=== PATIENT | female | born 1970 | race Caucasian/White ===

== ENCOUNTER → 2017-04-11 | Day surgery (SDC) | payer BC ==
[2017-04-08 10:45] VITALS: Ht 165.1 cm; Wt 68.2 kg
[~2017-04-11] VITALS: Ht 165.1 cm; Wt 68.2 kg
[~2017-04-11] MED LIST: ACET500T57 PO; AMIT100T2 PO; BTLAI INJ; CALC250T8 PO; CHOL100010 PO; CLON1TAB3 PO; CYAN1SUB12 SL; FENTANYL CITRATE INJ 50 MCG/1 ML 2 ML VIAL ONE; FERR325T51 PO; HYDR-4079 PO; LAMO150T32 PO; LEVO50TA6 PO; LIDOCAINE HCL 2% 2 ML VIAL (20MG/ML) ONE; LITH300T2 PO; LITH600C PO; LRS20 PO; MELA1TAB48 PO; MIDAZOLAM HCL 1 MG/ML 2ML VIAL ONE; OLAN-111 PO; ONDA4TAB46 PO; PHEN-876 PO; POLY335025 PO; PROC1TAB5 PO; PROPOFOL IV EMULSION 10 MG/ML 20 ML VIAL IV ONE; RIZA10TA21 PO; SODIUM CHLORIDE 0.9% 500ML 500 ML IV ONE; TEMA30CA4 PO; TOPI200T20 PO
--- NOTE | 2017-04-11 08:57 | Endo History and Physical ---
History & Physical Date of Service: Apr 11, 2017. Chief Complaint: Esophageal dysphagia Referring Physician: Dr. Walker History of Present Illness 46 yo CF who presents for EGD secondary to dysphagia. Past Medical History Eating Disorders, Other Psy. Disorders, Anxiety, Reflux, Hypertension, Thyroid Disease, Other, Depression Past Surgical History Hx Cardiac Surgery: No Hx Internal Defibrillator: No Hx Pacemaker: No Hx Abdominal Surgery: Yes (GASTRIC BYPASS, VENTRAL HERNIA REPAIR, JACKIE, APPY, BOWEL OBSTRUCTION) Hx of Implantable Prosthesis: No Hx Post-Op Nausea and Vomiting: No Hx Cancer Surgery: Yes (MELANOMA REMOVAL) Hx Thoracic Surgery: No Hx Orthopedic: Yes (L/R SHOULDER SURGERY) Hx Urinary Tract Surgery: No Family History None Social History Smoking Status: Never Smoker Hx Substance Use: No Hx Alcohol Use: No Allergies Coded Allergies: Fentanyl (Verified Allergy, Unknown, RASH, ITCHY, 04/08/17) REACTS ONLY TO PATCH AND TOLERATE IV DOSES Morphine (Verified Allergy, Unknown, HIVES, ITCHING, 04/08/17) Oxycodone (Verified Allergy, Unknown, HIGH FEVERS, 04/08/17) Sumatriptan (Verified Allergy, Unknown, HIVES, 04/08/17) Duloxetine (Verified Adverse Reaction, Intermediate, NIGHTMARES, HALLUCINATIONS, 04/08/17) Gabapentin (Verified Adverse Reaction, Mild, NIGHTMARE, 04/08/17) Tramadol (Verified Adverse Reaction, Mild, VOMITTING, 04/08/17) NSAIDs (Verified Adverse Reaction, Unknown, CONTRAINDICATED HX: GASTRIC BYPASS, 04/08/17) Current Medications Reported Home Medications Medications Dose Route/Sig Max Daily Dose Days Date Category Dose Instructions Compazine (Prochlorperazine Maleate) 10 Mg Tab 10 Mg PO DIRECTED PRN 04/08/17 Reported Zofran (Ondansetron HCl) 4 Mg Tab 4 Mg PO Q8H PRN 04/08/17 Reported [place] Carbonate Tab ([place] Carbonate) 300 Mg Tab 300 Mg PO QAM 04/08/17 Reported [place] 10MG/325MG (Acetaminophen/Hydrocodone Bitart) Tab 1 Tab PO Q4H PRN 10/26/16 Reported PRN PAIN Restoril (Temazepam) 30 Mg Cap 30 Mg PO HS 10/12/16 Reported Klonopin (Clonazepam) 1 Mg Tab 1 Mg PO TID 10/12/16 Reported Vitamin D (Cholecalciferol) 1,000 Inter.unit Tab 2,000 Inter.unit PO QAM 06/10/16 Reported [place] Carbonate 600 Mg Cap 600 Mg PO HS 05/26/16 Reported Melatonin 10 Mg Tab 10 Mg PO HS PRN 02/20/16 Reported Iron Supplement (Ferrous Sulfate) 325 Mg Tab 325 Mg PO QAM 02/20/16 Reported Vitamin B-12 (Cyanocobalamin) 2,500 Mcg Sub 2,500 Mcg SL QAM 02/20/16 Reported Pyridium (Phenazopyridine HCl) 200 Mg Tab 200 Mg PO UD PRN 02/20/16 Reported DIRECTED Levothyroxine Sodium 50 Mcg Tab 75 Mcg PO MWF 02/20/16 Reported Levothyroxine Sodium 50 Mcg Tab 50 Mcg PO 4XWK 02/20/16 Reported TUESDAY,TUESDAY,TUESDAY AND TUESDAY. Baclofen 20 Mg Tab 20 Mg PO TID 11/26/15 Reported Elavil (Amitriptyline Hcl) 100 Mg Tab 100 Mg PO HS 09/02/15 Reported Calcium Citrate 250 Mg Tab 1,250 Mg PO HS 09/02/15 Reported Lamictal (Lamotrigine) 150 Mg Tab 300 Mg PO QAM 06/20/15 Reported Miralax (Polyethylene Glycol 3350) 1 Pow 17 Gm PO DAILY PRN 04/28/15 Reported Rizatriptan Benzoate 10 Mg Tab 10 Mg PO UD PRN 03/03/15 Reported Topamax (Topiramate) 200 Mg Tab 200 Mg PO BID 03/03/15 Reported Acetaminophen 500 Mg Tab 1,000 Mg PO UD PRN 11/19/13 Reported Vital Signs Weight (Kilograms): 68.18 Height (Feet): 5 Height (Inches): 5 Physical Exam General Appearance: WD/WN, no apparent distress Respiratory/Chest: Auscultation: breath sounds normal Cardiovascular: Heart Auscultation: RRR Abdomen: Bowel Sounds: normal Inspection & Palpation: soft, non-distended, no tenderness, guarding & rebound Assessment and Plan Assessment: 46 yo CF who presents for EGD secondary to dysphagia. Plan: Proceed with EGD.
[2017-04-11 09:12] VITALS: TEMP 37.3
--- NOTE | 2017-04-11 09:49 | Discharge Instructions ---
Endoscopy Patient Instructions Date / Procedure(s) Performed Apr 11, 2017. EGD Allergy Information Coded Allergies: Fentanyl (Verified Allergy, Unknown, RASH, ITCHY, 04/11/17) REACTS ONLY TO PATCH AND TOLERATE IV DOSES Morphine (Verified Allergy, Unknown, HIVES, ITCHING, 04/11/17) Oxycodone (Verified Allergy, Unknown, HIGH FEVERS, 04/11/17) Sumatriptan (Verified Allergy, Unknown, HIVES, 04/11/17) Duloxetine (Verified Adverse Reaction, Intermediate, NIGHTMARES, HALLUCINATIONS, 04/11/17) Gabapentin (Verified Adverse Reaction, Mild, NIGHTMARE, 04/11/17) Tramadol (Verified Adverse Reaction, Mild, VOMITTING, 04/11/17) NSAIDs (Verified Adverse Reaction, Unknown, CONTRAINDICATED HX: GASTRIC BYPASS, 04/11/17) Discharge Date / Findings Apr 11, 2017. Esophageal stricture s/p dilation to 17mm Esophageal brushings Medication Instructions OK to resume all medications today as prescribed Reported Home Medications Medications Dose Route/Sig Max Daily Dose Days Date Category Dose Instructions Compazine (Prochlorperazine Maleate) 10 Mg Tab 10 Mg PO DIRECTED PRN 04/08/17 Reported Zofran (Ondansetron HCl) 4 Mg Tab 4 Mg PO Q8H PRN 04/08/17 Reported [place] Carbonate Tab ([place] Carbonate) 300 Mg Tab 300 Mg PO QAM 04/08/17 Reported [place] 10MG/325MG (Acetaminophen/Hydrocodone Bitart) Tab 1 Tab PO Q4H PRN 10/26/16 Reported PRN PAIN Restoril (Temazepam) 30 Mg Cap 30 Mg PO HS 10/12/16 Reported Klonopin (Clonazepam) 1 Mg Tab 1 Mg PO TID 10/12/16 Reported Vitamin D (Cholecalciferol) 1,000 Inter.unit Tab 2,000 Inter.unit PO QAM 06/10/16 Reported [place] Carbonate 600 Mg Cap 600 Mg PO HS 05/26/16 Reported Melatonin 10 Mg Tab 10 Mg PO HS PRN 02/20/16 Reported Iron Supplement (Ferrous Sulfate) 325 Mg Tab 325 Mg PO QAM 02/20/16 Reported Vitamin B-12 (Cyanocobalamin) 2,500 Mcg Sub 2,500 Mcg SL QAM 02/20/16 Reported Pyridium (Phenazopyridine HCl) 200 Mg Tab 200 Mg PO UD PRN 02/20/16 Reported DIRECTED Levothyroxine Sodium 50 Mcg Tab 75 Mcg PO MWF 02/20/16 Reported Levothyroxine Sodium 50 Mcg Tab 50 Mcg PO 4XWK 02/20/16 Reported TUESDAY,TUESDAY,TUESDAY AND TUESDAY. Baclofen 20 Mg Tab 20 Mg PO TID 11/26/15 Reported Elavil (Amitriptyline Hcl) 100 Mg Tab 100 Mg PO HS 09/02/15 Reported Calcium Citrate 250 Mg Tab 1,250 Mg PO HS 09/02/15 Reported Lamictal (Lamotrigine) 150 Mg Tab 300 Mg PO QAM 06/20/15 Reported Miralax (Polyethylene Glycol 3350) 1 Pow Pow 17 Gm PO DAILY PRN 04/28/15 Reported Rizatriptan Benzoate 10 Mg Tab 10 Mg PO UD PRN 03/03/15 Reported Topamax (Topiramate) 200 Mg Tab 200 Mg PO BID 03/03/15 Reported Acetaminophen 500 Mg Tab 1,000 Mg PO UD PRN 11/19/13 Reported Provider Instructions Activity Restrictions - No exercising or heavy lifting for 24 hours. - Do not drink alcohol the day of the procedure. - Do not drive a car or operate machinery until the day after the procedure. - Do not make any important decisions or sign important papers in 24 hours after the procedure. Following Day: - Return to full activity which may include returning to work/school. Diet Start your diet with liquids and light foods (jello, soup, juice, toast). Then eat your usual diet if not nauseated. Treatment For Common After Affects For mild abdominal pain, bloating, or excessive gas: - Rest - Eat lightly - Lie on right side Follow-Up Information Follow-up with [facility] as scheduled Anesthesia Information What You Should Know You have had a procedure that required some medicine to reduce anxiety and discomfort. This treatment is called moderate sedation. After receiving the treatment, you may be sleepy, but you will be able to breathe on your own. The effects of the treatment may last for several hours. Follow these instructions along with Activity/Diet recommendations noted above: * Do NOT do anything where dizziness or clumsiness would be dangerous. * Rest quietly at home today, then you can be up and about tomorrow. * Have a responsible person stay with you the rest of today. * You may have had an I.V. today. If so, you may take the dressing off later today. Recommendations Call your doctor if: * Trouble breathing * Continuous vomiting for more than 24 hours * Temperature above 101 degrees * Severe abdominal pain or bloating * Pain not relieved by pain medicine ordered * There is increased drainage or redness from any incision * A large amount of rectal bleeding greater than 2-3 tablespoons. (If you had a polyp/s removed or have hemorrhoids, a small amount of blood - from the rectum is to be expected.) * You have any unanswered questions or concerns. IN THE EVENT OF A SERIOUS EMERGENCY, GO TO THE NEAREST EMERGENCY ROOM Your discharge instructions were prepared by provider Josh Hills. Patient Instructions Signature Page Ella Cortez Patient (or Guardian) Signature/Date: I have read and understand the instructions given to me by my caregivers. Caregiver/RN/Doctor Signature/Date: The above-named patient and/or guardian has received patient instructions on this date. + Original Patient Signature Page (only) stays with chart. Please make copy for patient.
--- NOTE | 2017-04-11 09:57 | GI REPORT ---
Procedure Date: 04/11/2017 9:00 AM Procedure: Upper GI endoscopy Indications: Dysphagia Medicines: Monitored Anesthesia Care Complications: No immediate complications. Estimated Blood Loss: Estimated blood loss: none. Procedure: Pre-Anesthesia Assessment: - Prior to the procedure, a History and Physical was performed, and patient medications and allergies were reviewed. The patient's tolerance of previous anesthesia was also reviewed. The risks and benefits of the procedure and the sedation options and risks were discussed with the patient. All questions were answered, and informed consent was obtained. Prior Anticoagulants: The patient has taken no previous anticoagulant or antiplatelet agents. ASA Grade Assessment: III - A patient with severe systemic disease. After reviewing the risks and benefits, the patient was deemed in satisfactory condition to undergo the procedure. After obtaining informed consent, the endoscope was passed under direct vision. Throughout the procedure, the patient's blood pressure, pulse, and oxygen saturations were monitored continuously. The scope was introduced through the mouth, and advanced to the jejunum. The upper GI endoscopy was accomplished without difficulty. The patient tolerated the procedure well. Findings: One mild benign-appearing, intrinsic stenosis was found. This measured 1.4 cm (inner diameter) x less than one cm (in length) and was traversed. A guidewire was placed and the scope was withdrawn. Dilation was performed with a Savary dilator with mild resistance at 51 Fr. Cells for cytology were obtained by brushing in the upper third of the esophagus. Evidence of a Teofilo-en-Y gastrojejunostomy was found. The gastrojejunal anastomosis was characterized by healthy appearing mucosa. This was traversed. The [id number] limb was characterized by healthy appearing mucosa. Impression: - Benign-appearing esophageal stenosis. Dilated. - Teofilo-en-Y gastrojejunostomy with gastrojejunal anastomosis characterized by healthy appearing mucosa. - Cells for cytology obtained in the upper third of the esophagus. Recommendation: - Resume previous diet. - Continue present medications. - Return to primary care physician as previously scheduled. Josh Hills DO 04/11/2017 9:57:44 AM This report has been signed electronically. Note Initiated On: 04/11/2017 9:00 AM I attest to the content of the Intraoperative Record and orders documented therein, exceptions below
[2017-04-11 10:06] VITALS: PULSE 80
[2017-04-11 10:26] VITALS: BP 125/81; O2SAT 100
--- NOTE | 2017-04-11 10:40 | Anesthesiology Progress Note ---
Anesthesia Post Op Note Date & Time Apr 11, 2017 at 10:39 Vital Signs Pain Intensity: 7.0 Vital Signs Past 12 Hours Date Time Temp Pulse Resp B/P (MAP) Pulse Ox O2 Delivery O2 Flow Rate FiO2 04/11/17 10:26 18 125/81 (96) 100 Room Air 04/11/17 10:06 80 18 116/81 (93) 96 Room Air 04/11/17 09:52 90 18 100/51 (67) 100 Room Air 04/11/17 09:12 37.3 77 18 111/77 (88) 100 Notes Mental Status: alert / awake / arousable, participated in evaluation Pt Amnestic to Procedure: Yes Nausea / Vomiting: adequately controlled Pain: adequately controlled Airway Patency, RR, SpO2: stable & adequate BP & HR: stable & adequate Hydration State: stable & adequate Anesthetic Complications: no major complications apparent Patient complained of migraine in pacu which she claims had been present prior to coming in to hospital. She says that she typically gets 2mg of dilaudid for headaches in the ER. No concerning or red flag symptoms were present. Patient was treated effectively with 50mg fentanyl and she is comfortable for disposition to home.
== END | disposition home or self-care (01) ==
LOC: C.GI 08:42
PROVIDERS: ATTEND Internal Medicine
DX: R13.10 Dysphagia, unspecified (principal); K22.2 Esophageal obstruction; M19.90 Unspecified osteoarthritis, unspecified site; I10 Essential (primary) hypertension; F31.9 Bipolar disorder, unspecified; F41.9 Anxiety disorder, unspecified; Z98.84 Bariatric surgery status; Z98.890 Other specified postprocedural states; Z68.25 Body mass index [BMI] 25.0-25.9, adult; Z90.49 Acquired absence of other specified parts of digestive tract; Z90.89 Acquired absence of other organs; Z88.5 Allergy status to narcotic agent

== ENCOUNTER → 2017-04-20 | Outpatient (CLI) | payer BC ==
[~2017-04-20] MED LIST changes: -FENTANYL CITRATE INJ 50 MCG/1 ML 2 ML VIAL ONE; -LIDOCAINE HCL 2% 2 ML VIAL (20MG/ML) ONE; -MIDAZOLAM HCL 1 MG/ML 2ML VIAL ONE; -PROPOFOL IV EMULSION 10 MG/ML 20 ML VIAL IV ONE; -SODIUM CHLORIDE 0.9% 500ML 500 ML IV ONE
== END | disposition home or self-care (01) ==
LOC: C.PAPS 14:42
PROVIDERS: ATTEND Obstetrics & Gynecology
DX: Z01.419 Encounter for gynecological examination (general) (routine) without abnormal findings (principal)

== ENCOUNTER → 2017-05-02 | Outpatient (CLI) | payer BC ==
[~2017-05-02] MED LIST changes: +GADAVIST IV PRN; +MXL10 PO; -RIZA10TA21 PO
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
--- NOTE | 2017-05-02 12:04 | DIAGNOSTIC IMAGING REPORT ---
MR OF THE CERVICAL SPINE WITHOUT IV CONTRAST CLINICAL HISTORY: 46-year-old female with headache and neck pain. COMPARISON STUDY: Correlation made to CT of the cervical spine from 02/02/2016. TECHNIQUE: Multisequence, multiplanar MR imaging of the cervical spine was performed without use of intravenous contrast. FINDINGS: Cervical spine: Vertebral body height and alignment are maintained throughout the cervical spine. The atlantodental articulation appears maintained. No destructive bony lesion is seen. Intervertebral discs: Normal in height and signal intensity. Spinal cord: The cervical spinal cord is normal in morphology and signal intensity. C2-C3: Normal. C3-C4: Normal. C4-C5: Normal. C5-C6: Normal. C6-C7: Normal. C7-T1: Normal. Soft tissues: The paraspinous and prevertebral soft tissues are normal in appearance. Brain parenchyma: Partially imaged brain parenchyma at the skull base is within normal limits. IMPRESSION: Normal cervical spine. Electronically signed by: Manuel Cuevas 05/02/2017 12:03 PM Dictated Date/Time: 05/02/2017 11:48 AM
== END | disposition home or self-care (01) ==
LOC: C.OPENMRI 09:20
PROVIDERS: ATTEND Physical Medicine & Rehabilitation
DX: M54.2 Cervicalgia (principal); R51 Headache

== ENCOUNTER → 2017-06-03 | Day surgery (SDC) | payer BC ==
[2017-05-25 11:39] VITALS: BMI 23.0
[~2017-06-03] VITALS: Ht 165.1 cm; Wt 64.1 kg
[~2017-06-03] MED LIST changes: +FENTANYL CITRATE INJ 50 MCG/1 ML 2 ML VIAL ONE; -GADAVIST IV PRN; +LIDOCAINE HCL 2% 2 ML VIAL (20MG/ML) ONE; +PROPOFOL IV EMULSION 10 MG/ML 20 ML VIAL IV ONE; +SODIUM CHLORIDE 0.9% 500ML 500 ML IV ONE
[2017-06-03 12:09] VITALS: Ht 165.1 cm; Wt 64.1 kg
--- NOTE | 2017-06-03 12:26 | Endo History and Physical ---
History & Physical Date of Service: Jun 03, 2017. Chief Complaint: DYSPHAGIA PAIN IN THROAT Referring Physician: DR GEORGES History of Present Illness 46 yo CF who presents for EGD secondary to dysphagia and throat pain. Past Medical History Eating Disorders, Other Psy. Disorders, Anxiety, Reflux, Hypertension, Thyroid Disease, Other, Depression Past Surgical History Hx Cardiac Surgery: No Hx Internal Defibrillator: No Hx Pacemaker: No Hx Abdominal Surgery: Yes (GASTRIC BYPASS, VENTRAL HERNIA REPAIR, JACKIE, APPY, BOWEL OBSTRUCTION) Hx of Implantable Prosthesis: No Hx Post-Op Nausea and Vomiting: No Hx Cancer Surgery: Yes (MELANOMA REMOVAL) Hx Thoracic Surgery: No Hx Orthopedic: Yes (LT/RT SHOULDER SURGERY) Hx Urinary Tract Surgery: No Family History None Social History Smoking Status: Never Smoker Hx Substance Use: No Hx Alcohol Use: No Allergies Coded Allergies: Fentanyl (Verified Allergy, Unknown, RASH, ITCHY, 06/03/17) REACTS ONLY TO PATCH AND TOLERATE IV DOSES Morphine (Verified Allergy, Unknown, HIVES, ITCHING, 06/03/17) Oxycodone (Verified Allergy, Unknown, HIGH FEVERS, 06/03/17) Sumatriptan (Verified Allergy, Unknown, HIVES, 06/03/17) Duloxetine (Verified Adverse Reaction, Intermediate, NIGHTMARES, HALLUCINATIONS, 06/03/17) Gabapentin (Verified Adverse Reaction, Mild, NIGHTMARE, 06/03/17) Tramadol (Verified Adverse Reaction, Mild, VOMITTING, 06/03/17) NSAIDs (Verified Adverse Reaction, Unknown, CONTRAINDICATED HX: GASTRIC BYPASS, 06/03/17) Current Medications Reported Home Medications Medications Dose Route/Sig Max Daily Dose Days Date Category Dose Instructions Botox (Botulinum Toxin Type A) 100 Units Inj 1 Dose INJ [id number] 05/25/17 Reported Zyprexa (Olanzapine) 5 Mg Tab 5 Mg PO QAM 05/25/17 Reported Compazine (Prochlorperazine Maleate) 10 Mg Tab 10 Mg PO DIRECTED PRN 04/08/17 Reported Zofran (Ondansetron HCl) 4 Mg Tab 4 Mg PO Q8H PRN 04/08/17 Reported [place] Carbonate Tab ([place] Carbonate) 300 Mg Tab 300 Mg PO QAM 04/08/17 Reported [place] 10MG/325MG (Acetaminophen/Hydrocodone Bitart) Tab 1 Tab PO Q4H PRN 10/26/16 Reported PRN PAIN Restoril (Temazepam) 30 Mg Cap 30 Mg PO HS 10/12/16 Reported Klonopin (Clonazepam) 1 Mg Tab 1 Mg PO TID 10/12/16 Reported Vitamin D (Cholecalciferol) 1,000 Inter.unit Tab 2,000 Inter.unit PO QAM 06/10/16 Reported [place] Carbonate 600 Mg Cap 600 Mg PO HS 05/26/16 Reported Melatonin 10 Mg Tab 10 Mg PO HS PRN 02/20/16 Reported Iron Supplement (Ferrous Sulfate) 325 Mg Tab 325 Mg PO QAM 02/20/16 Reported Vitamin B-12 (Cyanocobalamin) 2,500 Mcg Sub 2,500 Mcg SL QAM 02/20/16 Reported Pyridium (Phenazopyridine HCl) 200 Mg Tab 200 Mg PO UD PRN 02/20/16 Reported DIRECTED Levothyroxine Sodium 50 Mcg Tab 50 Mcg PO Q2D 02/20/16 Reported Baclofen 20 Mg Tab 20 Mg PO TID 11/26/15 Reported Elavil (Amitriptyline Hcl) 100 Mg Tab 100 Mg PO HS 09/02/15 Reported Calcium Citrate 250 Mg Tab 1,250 Mg PO HS 09/02/15 Reported Lamictal (Lamotrigine) 150 Mg Tab 300 Mg PO QAM 06/20/15 Reported Miralax (Polyethylene Glycol 3350) 1 17 Gm PO DAILY PRN 04/28/15 Reported Rizatriptan Benzoate 10 Mg Tab 10 Mg PO UD PRN 03/03/15 Reported Topamax (Topiramate) 200 Mg Tab 200 Mg PO BID 03/03/15 Reported Acetaminophen 500 Mg Tab 1,000 Mg PO UD PRN 11/19/13 Reported Vital Signs Weight (Kilograms): 64.09 Height (Feet): 5 Height (Inches): 5 Physical Exam General Appearance: WD/WN, no apparent distress Respiratory/Chest: Auscultation: breath sounds normal Cardiovascular: Heart Auscultation: RRR Abdomen: Bowel Sounds: normal Inspection & Palpation: soft, non-distended, no tenderness, guarding & rebound Assessment and Plan Assessment: 46 yo CF who presents for EGD secondary to dysphagia and throat pain. Plan: Proceed with EGD.
--- NOTE | 2017-06-03 13:05 | Discharge Instructions ---
Endoscopy Patient Instructions Date / Procedure(s) Performed Jun 03, 2017. EGD Allergy Information Coded Allergies: Fentanyl (Verified Allergy, Unknown, RASH, ITCHY, 06/03/17) REACTS ONLY TO PATCH AND TOLERATE IV DOSES Morphine (Verified Allergy, Unknown, HIVES, ITCHING, 06/03/17) Oxycodone (Verified Allergy, Unknown, HIGH FEVERS, 06/03/17) Sumatriptan (Verified Allergy, Unknown, HIVES, 06/03/17) Duloxetine (Verified Adverse Reaction, Intermediate, NIGHTMARES, HALLUCINATIONS, 06/03/17) Gabapentin (Verified Adverse Reaction, Mild, NIGHTMARE, 06/03/17) Tramadol (Verified Adverse Reaction, Mild, VOMITTING, 06/03/17) NSAIDs (Verified Adverse Reaction, Unknown, CONTRAINDICATED HX: GASTRIC BYPASS, 06/03/17) Discharge Date / Findings Jun 03, 2017. History of Teofilo-En-Y gastric bypass No findings on this exam to explain patient's symptoms Medication Instructions OK to resume all medications today as prescribed Reported Home Medications Medications Dose Route/Sig Max Daily Dose Days Date Category Dose Instructions Botox (Botulinum Toxin Type A) 100 Units Inj 1 Dose INJ [id number] 05/25/17 Reported Zyprexa (Olanzapine) 5 Mg Tab 5 Mg PO QAM 05/25/17 Reported Compazine (Prochlorperazine Maleate) 10 Mg Tab 10 Mg PO DIRECTED PRN 04/08/17 Reported Zofran (Ondansetron HCl) 4 Mg Tab 4 Mg PO Q8H PRN 04/08/17 Reported [place] Carbonate Tab ([place] Carbonate) 300 Mg Tab 300 Mg PO QAM 04/08/17 Reported [place] 10MG/325MG (Acetaminophen/Hydrocodone Bitart) Tab 1 Tab PO Q4H PRN 10/26/16 Reported PRN PAIN Restoril (Temazepam) 30 Mg Cap 30 Mg PO HS 10/12/16 Reported Klonopin (Clonazepam) 1 Mg Tab 1 Mg PO TID 10/12/16 Reported Vitamin D (Cholecalciferol) 1,000 Inter.unit Tab 2,000 Inter.unit PO QAM 06/10/16 Reported [place] Carbonate 600 Mg Cap 600 Mg PO HS 05/26/16 Reported Melatonin 10 Mg Tab 10 Mg PO HS PRN 02/20/16 Reported Iron Supplement (Ferrous Sulfate) 325 Mg Tab 325 Mg PO QAM 02/20/16 Reported Vitamin B-12 (Cyanocobalamin) 2,500 Mcg Sub 2,500 Mcg SL QAM 02/20/16 Reported Pyridium (Phenazopyridine HCl) 200 Mg Tab 200 Mg PO UD PRN 02/20/16 Reported DIRECTED Levothyroxine Sodium 50 Mcg Tab 50 Mcg PO Q2D 02/20/16 Reported Baclofen 20 Mg Tab 20 Mg PO TID 11/26/15 Reported Elavil (Amitriptyline Hcl) 100 Mg Tab 100 Mg PO HS 09/02/15 Reported Calcium Citrate 250 Mg Tab 1,250 Mg PO HS 09/02/15 Reported Lamictal (Lamotrigine) 150 Mg Tab 300 Mg PO QAM 06/20/15 Reported Miralax (Polyethylene Glycol 3350) 1 17 Gm PO DAILY PRN 04/28/15 Reported Rizatriptan Benzoate 10 Mg Tab 10 Mg PO UD PRN 03/03/15 Reported Topamax (Topiramate) 200 Mg Tab 200 Mg PO BID 03/03/15 Reported Acetaminophen 500 Mg Tab 1,000 Mg PO UD PRN 11/19/13 Reported Provider Instructions Activity Restrictions - No exercising or heavy lifting for 24 hours. - Do not drink alcohol the day of the procedure. - Do not drive a car or operate machinery until the day after the procedure. - Do not make any important decisions or sign important papers in 24 hours after the procedure. Following Day: - Return to full activity which may include returning to work/school. Diet Start your diet with liquids and light foods (jello, soup, juice, toast). Then eat your usual diet if not nauseated. Treatment For Common After Affects For mild abdominal pain, bloating, or excessive gas: - Rest - Eat lightly - Lie on right side Recommend Video Swallow study Recommend consult with ENT for further evaluation and recommendations Follow-Up Information Follow-up with DR GEORGES as scheduled Anesthesia Information What You Should Know You have had a procedure that required some medicine to reduce anxiety and discomfort. This treatment is called moderate sedation. After receiving the treatment, you may be sleepy, but you will be able to breathe on your own. The effects of the treatment may last for several hours. Follow these instructions along with Activity/Diet recommendations noted above: * Do NOT do anything where dizziness or clumsiness would be dangerous. * Rest quietly at home today, then you can be up and about tomorrow. * Have a responsible person stay with you the rest of today. * You may have had an I.V. today. If so, you may take the dressing off later today. Recommendations Call your doctor if: * Trouble breathing * Continuous vomiting for more than 24 hours * Temperature above 101 degrees * Severe abdominal pain or bloating * Pain not relieved by pain medicine ordered * There is increased drainage or redness from any incision * A large amount of rectal bleeding greater than 2-3 tablespoons. (If you had a polyp/s removed or have hemorrhoids, a small amount of blood - from the rectum is to be expected.) * You have any unanswered questions or concerns. IN THE EVENT OF A SERIOUS EMERGENCY, GO TO THE NEAREST EMERGENCY ROOM Your discharge instructions were prepared by provider Josh Hills. Patient Instructions Signature Page Ella Cortez Patient (or Guardian) Signature/Date: I have read and understand the instructions given to me by my caregivers. Caregiver/RN/Doctor Signature/Date: The above-named patient and/or guardian has received patient instructions on this date. + Original Patient Signature Page (only) stays with chart. Please make copy for patient.
--- NOTE | 2017-06-03 13:17 | GI REPORT ---
Procedure Date: 06/03/2017 12:34 PM Procedure: Upper GI endoscopy Indications: Dysphagia Medicines: Monitored Anesthesia Care Complications: No immediate complications. Estimated Blood Loss: Estimated blood loss: none. Procedure: Pre-Anesthesia Assessment: - Prior to the procedure, a History and Physical was performed, and patient medications and allergies were reviewed. The patient's tolerance of previous anesthesia was also reviewed. The risks and benefits of the procedure and the sedation options and risks were discussed with the patient. All questions were answered, and informed consent was obtained. Prior Anticoagulants: The patient has taken no previous anticoagulant or antiplatelet agents. ASA Grade Assessment: II - A patient with mild systemic disease. After reviewing the risks and benefits, the patient was deemed in satisfactory condition to undergo the procedure. After obtaining informed consent, the endoscope was passed under direct vision. Throughout the procedure, the patient's blood pressure, pulse, and oxygen saturations were monitored continuously. The scope was introduced through the mouth, and advanced to the second part of duodenum. The upper GI endoscopy was accomplished without difficulty. The patient tolerated the procedure well. Findings: No endoscopic abnormality was evident in the esophagus to explain the patient's complaint of dysphagia. Evidence of a gastric bypass was found. A gastric pouch with a normal size was found. The gastrojejunal anastomosis was characterized by healthy appearing mucosa. This was traversed. The [id number]-vinexwx limb was not examined as it could not be found. The examined jejunum was normal. Impression: - No endoscopic esophageal abnormality to explain patient's dysphagia. - Gastric bypass with a normal-sized pouch. Gastrojejunal anastomosis characterized by healthy appearing mucosa. - Normal examined jejunum. - No specimens collected. Recommendation: - Resume previous diet. - Continue present medications. - Perform a video esophagram at appointment to be scheduled. - Refer to an ENT specialist at appointment to be scheduled. - Return to primary care physician as previously scheduled. Josh Hills DO 06/03/2017 1:16:51 PM This report has been signed electronically. Note Initiated On: 06/03/2017 12:34 PM I attest to the content of the Intraoperative Record and orders documented therein, exceptions below
--- NOTE | 2017-06-03 13:34 | Anesthesiology Progress Note ---
Anesthesia Post Op Note Date & Time Jun 03, 2017 at 13:33 Vital Signs Pain Intensity: 3 Vital Signs Past 12 Hours Date Time Temp Pulse Resp B/P (MAP) Pulse Ox O2 Delivery O2 Flow Rate FiO2 06/03/17 13:24 75 20 121/80 (94) 98 Room Air 06/03/17 13:12 74 20 95/53 (67) 98 Room Air 06/03/17 12:41 36.8 77 18 117/68 (84) 98 Room Air Notes Mental Status: alert / awake / arousable, participated in evaluation Pt Amnestic to Procedure: Yes Nausea / Vomiting: adequately controlled Pain: adequately controlled Airway Patency, RR, SpO2: stable & adequate BP & HR: stable & adequate Hydration State: stable & adequate Anesthetic Complications: no major complications apparent
[2017-06-03 13:46] VITALS: BP 119/72; PULSE 72; O2SAT 97
== END | disposition home or self-care (01) ==
LOC: C.GI 11:36
PROVIDERS: ATTEND Internal Medicine
DX: R13.10 Dysphagia, unspecified (principal); K21.9 Gastro-esophageal reflux disease without esophagitis; I10 Essential (primary) hypertension; F41.9 Anxiety disorder, unspecified; F32.9 Major depressive disorder, single episode, unspecified; Z90.49 Acquired absence of other specified parts of digestive tract; Z90.89 Acquired absence of other organs; M19.90 Unspecified osteoarthritis, unspecified site; E03.9 Hypothyroidism, unspecified; Z85.820 Personal history of malignant melanoma of skin; Z98.84 Bariatric surgery status

== ENCOUNTER 2017-06-15 08:36 | Day surgery (SDC) | payer BC ==
[~2017-06-15] VITALS: Ht 165.1 cm; Wt 68.3 kg
[~2017-06-15 08:36] MED LIST changes: -FENTANYL CITRATE INJ 50 MCG/1 ML 2 ML VIAL ONE; -LIDOCAINE HCL 2% 2 ML VIAL (20MG/ML) ONE; -PROPOFOL IV EMULSION 10 MG/ML 20 ML VIAL IV ONE; -SODIUM CHLORIDE 0.9% 500ML 500 ML IV ONE
[2017-06-15 09:18] VITALS: BP 164/89; PULSE 99; TEMP 36.9; O2SAT 99; Ht 165.1 cm; Wt 68.3 kg
[2017-06-15] MEDS ORDERED: ATROPINE SULFATE 0.1 MG/ML 5ML SYR IV PRN (09:30)
[2017-06-15] MEDS ORDERED: EpHEDrine SULFATE INJ 50 MG/ML AMP IV PRN (09:30)
[2017-06-15 09:31] LABS: HEMATOCRIT 42.8 % (37-47); MEAN CELL VOLUME 98.8 fL (80-100); MEAN CORPUSCULAR HEMOGLOBIN 29.6 pg (25-34); MEAN PLATELET VOLUME 10.3 fL (7.4-10.4); PLATELET COUNT 200 K/uL (130-400); RED BLOOD COUNT 4.33 M/uL (4.2-5.4); WHITE BLOOD COUNT 3.39 K/uL (4.8-10.8)
[2017-06-15 09:34] LABS: MEAN CORPUSCULAR HGB CONC 29.9 g/dl (32-36)
[2017-06-15 09:49] LABS: CREATININE 0.89 mg/dl (0.60-1.20)
[2017-06-15 09:50] LABS: BUN/CREATININE RATIO 11.7 (10-20); CALCIUM 8.7 mg/dl (8.5-10.1); POTASSIUM 3.7 mmol/L (3.5-5.1)
[2017-06-15] MEDS ORDERED: PROPOFOL IV EMULSION 10 MG/ML 20 ML VIAL IV ONE (09:58)
[2017-06-15] MEDS ORDERED: SUCCINYLCHOLINE CHLORIDE 20 MG/ML 10 ML VIAL IV ONE (09:58)
[2017-06-15] MEDS ORDERED: LIDOCAINE HCL 2% 2 ML VIAL (20MG/ML) ONE (09:58)
[2017-06-15] MEDS ORDERED: ROCURONIUM BROMIDE 10 MG/ML 5 ML VIAL ONE (09:58)
[2017-06-15] MEDS ORDERED: FENTANYL CITRATE INJ 50 MCG/1 ML 2 ML VIAL ONE (09:59)
[2017-06-15] MEDS ORDERED: MIDAZOLAM HCL 1 MG/ML 2ML VIAL ONE (09:59)
--- NOTE | 2017-06-15 10:08 | History & Physical Bridge Note ---
H&P Re-Evaluation Bridge Note: I have examined the patient, reviewed the History & Physical and in the interval since the performance of the History & Physical I have noted the following changes of clinical significance: No changes noted
[2017-06-15] MEDS ORDERED: LIDOCAINE/EPINEPHRINE 1% 20 ML VIAL ONE (10:43)
[2017-06-15] MEDS ORDERED: DEXAMETHASONE SOD INJ 4 MG/ML VIAL ONE (11:05)
[2017-06-15] MEDS ORDERED: ONDANSETRON INJ 2 MG/ML 2 ML VIAL ONE (11:05)
--- NOTE | 2017-06-15 11:26 | [facility] Operative Report ---
Operative Report Operative Date Jun 15, 2017. Pre-Operative Diagnosis Lesion of Left Posterior Tongue Post-Operative Diagnosis Lesion of Left Posterior Tongue Procedure(s) Performed Excisional biopsy of left posterior tongue lesion with closure Surgeon Dr Padilla Bilingual Operator Surgeon(s) None Estimated Blood Loss 5cc Findings 1. strange ~1cm exophytic polypoid mass emanating from the left posterior tongue near the circumvallate papillae 2. 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 Left Base of Tongue Lesion Pernament A. Left Base of Tongue Lesion I attest to the content of the Intraoperative Record and any orders documented therein. Any exceptions are noted below.
[2017-06-15] MEDS ORDERED: ONDANSETRON INJ 2 MG/ML 2 ML VIAL IV PRN (11:30)
[2017-06-15] MEDS ORDERED: ACETAMINOPHEN/HYDROCODONE ELIX 15 ML/CUP UDP PO PRN (11:30)
--- NOTE | 2017-06-15 11:31 | Discharge Instructions ---
Discharge Instructions Date of Service Jun 15, 2017. Admission Reason for Admission: Tongue Lesion Discharge Discharge Diagnosis / Problem: same Discharge Goals Goal(s): Therapeutic intervention Activity Recommendations Activity Limitations: as noted below 1. AVOID HOT LIQUIDS/FOODS FOR 1 WEEK 2. LIGHT ACTIVITY FOR 48-72HRS . Current Hospital Diet Patient's current hospital diet: Regular Diet Discharge Diet Recommended Diet: Regular Diet Procedures Procedures Performed: Excisional biopsy of left posterior tongue lesion with closure Pending Studies Studies pending at discharge: no Medical Emergencies . Who to Call and When: Medical Emergencies: If at any time you feel your situation is an emergency, please call 911 immediately. . Non-Emergent Contact Non-Emergency issues call your: Surgeon . . "Provider Documentation" section prepared by Armond Padilla. . VTE Core Measure Inpt VTE Proph given/why not?: SCD's
[2017-06-15] MEDS: FENTANYL CITRATE INJ 50 MCG/1 ML 2 ML VIAL IV PRN ×3 (11:50→12:26)
--- NOTE | 2017-06-15 12:06 | OPERATIVE REPORT ---
DATE OF OPERATION: 06/15/2017 PREOPERATIVE DIAGNOSIS: Left posterior tongue lesion. POSTOPERATIVE DIAGNOSIS: Left posterior tongue lesion. PROCEDURE: Excisional biopsy of left posterior tongue lesion with primary closure. SURGEON: Dr. Armond Padilla. ANESTHESIA: General endotracheal. ESTIMATED BLOOD LOSS: 5 mL. FINDINGS: 1. Approximate 1-cm polypoid lesion that was exophytic and emanating off the left posterior tongue near the circumvallate papillae. 2. 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 SPECIMENS: Left posterior tongue lesion for both frozen and permanent pathological assessment. COMPLICATIONS: None. INDICATIONS FOR THE PROCEDURE: The patient is a 46-year-old female with a history of dysphagia, throat pain, left otalgia, and weight loss of 7 pounds over the past 7 weeks, who was noted by her dentist to have an abnormal left posterior tongue lesion. She underwent an EGD for her dysphagia, which was relatively unremarkable. She was referred to our office yesterday and found to have this approximately 1 cm polypoid lesion emanating from the left posterior tongue. Her laryngoscopy was otherwise normal. She presents for the above-mentioned procedure on an outpatient elective basis. DESCRIPTION OF PROCEDURE: After informed consent had been obtained from the patient, the patient was wheeled to the operating room and placed on the operating table in the supine position. Monitors were placed. After induction of general endotracheal anesthesia, a García gag was carefully inserted and used to open up the patient's mouth and expose the oral cavity and oropharynx. An 0 silk suture was placed in the midline of the tongue and used for retraction of the tongue anteriorly to expose the left posterior tongue lesion. The lesion was palpated and this was found to be firm and appeared to be exophytic and approximately 1 cm near the region of the posterior tongue in the region of the circumvallate papillae. One mL of 1% lidocaine with 1:100,000 epinephrine was used to inject the mucosa and submucosa of the left posterior tongue. After allowing adequate time for vasoconstriction, a #15 scalpel was used to make an elliptical incision around this polypoid lesion that seemed to have a stalk. The majority of this lesion was sent off for frozen pathologic assessment, but a small piece of that was sent for permanent pathological assessment as well. Direct pressure was applied to the lesion to assist with hemostasis. The incision was then closed with 1 simple interrupted 4-0 chromic suture. Frozen section diagnosis came back as atypical spindle cells with the inability to determine whether or not it was benign or malignant. Pathology will have to run some special stains on the specimen that was sent as well as a permanent pathological assessment. An orogastric tube was placed and the stomach was suctioned free of air and stomach contents. This marked the end of the case. The patient tolerated the procedure well. There were no apparent complications. The patient was extubated and transferred to recovery room in stable condition. I attest to the content of the Intraoperative Record and any orders documented therein. Any exception s are noted below.
--- NOTE | 2017-06-15 12:44 | Anesthesiology Progress Note ---
Anesthesia Post Op Note Date & Time Jun 15, 2017 at 12:44 Vital Signs Pain Intensity: 4 Vital Signs Past 12 Hours Date Time Temp Pulse Resp B/P (MAP) Pulse Ox O2 Delivery O2 Flow Rate FiO2 06/15/17 12:38 87 16 131/87 97 Oxymask 06/15/17 12:30 85 16 119/89 98 Oxymask 06/15/17 12:25 84 16 130/91 100 Oxymask 2 06/15/17 12:20 86 16 133/80 100 Oxymask 2 06/15/17 12:15 88 16 124/96 100 Oxymask 4 06/15/17 12:10 84 14 146/86 100 Oxymask 4 06/15/17 12:05 83 14 123/67 100 Oxymask 4 06/15/17 12:00 84 14 140/90 100 Oxymask 4 06/15/17 11:55 84 12 140/91 100 Oxymask 4 06/15/17 11:45 83 12 120/86 100 Oxymask 4 06/15/17 11:38 36.6 85 16 136/83 100 Oxymask 10 06/15/17 09:18 36.9 99 18 164/89 (114) 99 Room Air Notes Mental Status: alert / awake / arousable, participated in evaluation Pt Amnestic to Procedure: Yes Nausea / Vomiting: adequately controlled Pain: adequately controlled Airway Patency, RR, SpO2: stable & adequate BP & HR: stable & adequate Hydration State: stable & adequate Anesthetic Complications: no major complications apparent
[2017-06-15 12:50] VITALS: BP 126/67; PULSE 88; TEMP 37.3; O2SAT 99
[2017-06-15 13:20] VITALS: BP 122/78; PULSE 91; O2SAT 99
[2017-06-15 13:50] VITALS: BP 111/77; PULSE 92; TEMP 36.9; O2SAT 98
== END 2017-06-15 14:05 | disposition home or self-care (01) ==
LOC: C.ACU 08:36
DX: C01 Malignant neoplasm of base of tongue (principal); K22.2 Esophageal obstruction; K21.9 Gastro-esophageal reflux disease without esophagitis; D64.9 Anemia, unspecified; F41.9 Anxiety disorder, unspecified; F30.9 Manic episode, unspecified; M54.81 Occipital neuralgia; E55.9 Vitamin D deficiency, unspecified; Z79.899 Other long term (current) drug therapy

== ENCOUNTER → 2017-06-27 | Outpatient (CLI) | payer BC, OTHER ==
[~2017-06-27] MED LIST changes: +GADAVIST IV PRN; -LITH600C PO; -OLAN-111 PO
--- NOTE | 2017-06-27 11:08 | DIAGNOSTIC IMAGING REPORT ---
SOFT TISSUE NECK COMBO CLINICAL HISTORY: 46 years-old Female presenting with LESION OF TONGUE, removed on 06/14/2017, possible malignancy, history of melanoma 2009. TECHNIQUE: Multisequence, multiplanar MR imaging of the neck was performed before and after the administration of intravenous contrast. IV contrast: 6.5 mm of Gadavist. COMPARISON: Cervical spine MR from 05/02/2017. FINDINGS: Localizer images: Unremarkable. No significant irregularity at the base to clearly identify the site of reported mass resection. No suspicious nodular enhancement. Preservation of perifissural fat. No gross mass lesion in the nasopharynx, oral cavity, oropharynx, hypopharynx, or larynx. No effacement of the valleculae or piriform sinuses. Preservation of preepiglottic and paraglottic fat. No cervical lymphadenopathy. Paranasal sinuses clear. Cervical spine within normal limits. IMPRESSION: No evidence of mass lesion. No lymphadenopathy. Electronically signed by: Manuel Cuevas M.D. 06/27/2017 11:07 AM Dictated Date/Time: 06/27/2017 11:01 AM
== END | disposition home or self-care (01) ==
LOC: C.MRIBC 09:25
PROVIDERS: ATTEND Physician Assistant
DX: K14.8 Other diseases of tongue (principal)

== ENCOUNTER → 2018-02-24 | Outpatient (CLI) | payer OTHER ==
[~2018-02-24] MED LIST changes: -ACET500T57 PO; +ACET500T58 PO; -GADAVIST IV PRN; +LAMO150T PO; -LAMO150T32 PO; -MXL10 PO; +RIZA10TA21 PO
--- NOTE | 2018-02-27 07:48 | MAMMOGRAPHY REPORT ---
BILATERAL DIGITAL SCREENING MAMMOGRAM TOMOSYNTHESIS WITH CAD: 02/24/2018 CLINICAL HISTORY: Routine screening. TECHNIQUE: Breast tomosynthesis in addition to standard 2D mammography was performed. Current study was also evaluated with a Computer Aided Detection (CAD) system. COMPARISON: Comparison is made to exams dated: 10/08/2016 mammogram, 09/15/2015 mammogram, 09/10/2014 mammogram, 08/15/2013 mammogram, 08/09/2012 mammogram, and 08/04/2011 mammogram - [facility]. BREAST COMPOSITION: The tissue of both breasts is heterogeneously dense, which may obscure small mas ses. FINDINGS: No suspicious masses, calcifications, or areas of architectural distortion are noted in ei ther breast. There has been no significant interval change compared to prior exams. IMPRESSION: ACR BI-RADS CATEGORY 1: NEGATIVE There is no mammographic evidence of malignancy. A 1 year screening mammogram is recommended. The pa tient will receive written notification of the results. Approximately 10% of breast cancers are not detected with mammography. A negative mammographic report should not delay biopsy if a clinically suggestive mass is present. Lupe Braden M.D. /:02/24/2018 08:09:51 Firer Kiln: Sheryl BAEZ(R)(M), [facility] letter sent: Normal 1/2 BI-RADS Code: ACR BI-RADS Category 1: Negative
== END | disposition home or self-care (01) ==
LOC: C.MAMM 07:45
PROVIDERS: ATTEND Obstetrics & Gynecology
DX: Z12.31 Encounter for screening mammogram for malignant neoplasm of breast (principal)

== ENCOUNTER 2018-03-02 07:11 | Emergency (ER) | payer OTHER ==
[~2018-03-02] VITALS: Ht 165.1 cm; Wt 69.8 kg
[2018-03-02 07:13] VITALS: TEMP 36.8; Ht 165.1 cm; Wt 69.8 kg
--- NOTE | 2018-03-02 07:30 | EMERGENCY ROOM VISIT NOTE ---
History Report prepared by Vahidibjessica: Gale Rahman Under the Supervision of: Dr. Calos Garcia D.O. First contact with patient: 07:20 Chief Complaint: SWELLING TO EXTREMITY Stated Complaint: EXTREMITY SWELLING,SOB,CP,DIZZINESS History of Present Illness The patient is a 47 year old female who presents to the Emergency Room with complaints of worsening swelling to her bilateral upper and lower extremities for the past 10 days. She reports this past weekend, when she went to put on stockings, she was unable to get them up because her legs were so swollen. She admits to some chest pain and shortness of breath that started earlier today when she was vacuuming and worsened with walking up stairs. She has never experienced these type of symptoms before. She states in the past she was told she had a heart murmur, and may have had a "mild TX in the past". The patient denies any history of PE or DVT. She has undergone a uterine ablation and no longer gets menstrual periods. Source of History: patient Onset: 10 days LANGUAGE [employer]OR Position: arm (bilateral), leg (bilateral) Quality: other (swelling) Timing: worsening Associated Symptoms: + chest pain, + SOB Review of Systems See HPI for pertinent positives & negatives. A total of 10 systems reviewed and were otherwise negative. Past Medical & Surgical Medical Problems: (1) Anxiety (2) Bipolar II disorder (3) bowel blockage (4) Depression (5) Drug Abuse Nec-Unspec (6) Drug Withdrawal (7) Esophageal Reflux (8) Fibromyalgia (9) H/O borderline personality disorder (10) History of - malignant melanoma (11) history of abnormal thyroid function tests (12) History of substance abuse (13) Hypertension Nos (14) Kidney stone (15) Lumbosacral Neuritis Nos (16) [place]ig Melanoma Trunk (17) Migraine (18) Migraine (19) Migraine Unspecified W/O Intractable Migraine (20) Multinodular goiter (21) Myofascial pain syndrome (22) Right upper lobe pneumonia Surgical Problems: (1) Appendectomy (2) gastric bypass (3) Hemorrhoidectomy (4) History of cholecystectomy (5) Hx of appendectomy (6) Hx of esophagogastroduodenoscopy (7) Lithotripsy (8) S/P rotator cuff repair (9) S/P small bowel resection (10) [place] Teeth Removal Family History Heart disease Hypertension Social History Smoking Status: Never Smoker Alcohol Use: none Drug Use: none Marital Status: Housing Status: lives with family Occupation Status: employed Current/Historical Medications Scheduled Amitriptyline Hcl (Elavil), 100 MG PO HS Baclofen (Baclofen), 20 MG PO TID Botulinum Toxin Type A (Botox), 1 DOSE INJ [id number] Calcium Citrate (Calcium Citrate), 1,250 MG PO HS Ciprofloxacin Hcl (Cipro), 500 MG PO BID Clonazepam (Klonopin), 1 MG PO TID Cyanocobalamin (Vitamin B-12), 2,500 MCG SL QAM Ferrous Sulfate (Iron Supplement), 325 MG PO QAM Lamotrigine (Lamictal), 300 MG PO QAM Levothyroxine Sodium (Levothyroxine Sodium), 50 MCG PO Q2D [place] Carbonate ([place] Carbonate Tab), 300 MG PO BID Temazepam ([place]), 30 MG PO HS Topiramate (Topamax), 200 MG PO BID Scheduled PRN Acetaminophen (Acetaminophen), 1,000 MG PO UD PRN for Mild Pain or Headache Hydrocodone/Acetaminophen 10MG/325MG ([place] 10MG/325MG), 1 TAB PO Q4H PRN for Pain Melatonin (Melatonin), 10 MG PO HS PRN for Sleep Ondansetron Hcl (Zofran), 4 MG PO Q8H PRN for Nausea Phenazopyridine HCl (Pyridium), 200 MG PO UD PRN for Pain-UTI Prochlorperazine Maleate (Compazine), 10 MG PO DIRECTED PRN for Headache Rizatriptan Benzoate (Rizatriptan Benzoate), 10 MG PO UD PRN for Migraine Allergies Coded Allergies: Fentanyl (Verified Allergy, Unknown, RASH, ITCHY, 03/02/18) REACTS ONLY TO PATCH AND TOLERATE IV DOSES Morphine (Verified Allergy, Unknown, HIVES, ITCHING, 03/02/18) Oxycodone (Verified Allergy, Unknown, HIGH FEVERS, 03/02/18) Sumatriptan (Verified Allergy, Unknown, HIVES, 03/02/18) Duloxetine (Verified Adverse Reaction, Intermediate, NIGHTMARES, HALLUCINATIONS, 03/02/18) Gabapentin (Verified Adverse Reaction, Mild, NIGHTMARE, 03/02/18) Tramadol (Verified Adverse Reaction, Mild, VOMITTING, 03/02/18) NSAIDs (Verified Adverse Reaction, Unknown, CONTRAINDICATED HX: GASTRIC BYPASS, 03/02/18) Physical Exam Vital Signs Date Time Temp Pulse Resp B/P (MAP) Pulse Ox O2 Delivery O2 Flow Rate FiO2 03/02/18 10:39 86 20 119/72 99 03/02/18 08:15 82 18 124/76 99 Room Air 03/02/18 08:15 100 Room Air 03/02/18 08:15 100 Room Air 03/02/18 07:40 81 03/02/18 07:13 36.8 91 16 122/80 100 Room Air Physical Exam GENERAL: Patient is awake, alert, non-anxious appearing and uncomfortable EYES: The conjunctivae are clear. The pupils are round and reactive. EARS, NOSE, MOUTH AND THROAT: The nose is without any evidence of any deformity. Mucous membranes are moist tongue is midline NECK: The neck is nontender and supple. RESPIRATORY: Normal respiratory effort is noted there is no evidence of wheezing rhonchi or rales CARDIOVASCULAR: Regular rate and rhythm noted there no murmurs rubs or gallops normal S1 normal S2 GASTROINTESTINAL: The abdomen is soft. Bowel sounds are present in all quadrants. Abdomen is nontender MUSCULOSKELETAL/EXTREMITIES: There is no evidence of gross deformity full range of motion is noted in the hips and shoulders SKIN: Pedal edema bilaterally. There is no obvious evidence of any rash. There are no petechiae, pallor or cyanosis noted. NEUROLOGIC: Patient is awake alert and oriented x3 Medical Decision & Procedures ER Provider Diagnostic Interpretation: Radiology results as stated below per my review and radiologist interpretation: CHEST ONE VIEW PORTABLE HISTORY: 47 years-old Female EVALUATE RESPIRATORY DISTRESS.DYSPNEA acute respiratory distress COMPARISON: Acute abdominal series radiographs 10/26/2016 TECHNIQUE: Portable supine AP view of the chest FINDINGS: Cardiac mediastinal and hilar silhouettes are within normal limits. No pneumothorax, pleural effusion, focal airspace consolidation or overt pulmonary edema. Postsurgical or chronic posttraumatic changes of the distal clavicles are noted bilaterally. The bones appear grossly intact. IMPRESSION: No acute process. The above report was generated using voice recognition software. It may contain grammatical, syntax or spelling errors. Electronically signed by: Kenney Dominguez M.D. 03/02/2018 7:50 AM Laboratory Results 03/02/18 07:35 Red Blood Count 4.22, Mean Corpuscular Volume 94.8, Mean Corpuscular Hemoglobin 30.3, Mean Corpuscular Hemoglobin Concent 32.0, Mean Platelet Volume 10.7, Neutrophils (%) (Auto) 83.8, Lymphocytes (%) (Auto) 12.5, Monocytes (%) (Auto) 3.2, Eosinophils (%) (Auto) 0.0, Basophils (%) (Auto) 0.3, Neutrophils # (Auto) 4.94, Lymphocytes # (Auto) 0.74, Monocytes # (Auto) 0.19, Eosinophils # (Auto) 0.00, Basophils # (Auto) 0.02 03/02/18 07:35 Test 03/02/18 07:35 03/02/18 08:12 03/02/18 09:10 03/02/18 10:01 White Blood Count 5.90 K/uL (4.8-10.8) Red Blood Count 4.22 M/uL (4.2-5.4) Hemoglobin 12.8 g/dL (12.0-16.0) Hematocrit 40.0 % (37-47) Mean Corpuscular Volume 94.8 fL (80-100) Mean Corpuscular Hemoglobin 30.3 pg (25-34) Mean Corpuscular Hemoglobin Concent 32.0 g/dl (32-36) Platelet Count 173 K/uL (130-400) Mean Platelet Volume 10.7 fL (7.4-10.4) Neutrophils (%) (Auto) 83.8 % Lymphocytes (%) (Auto) 12.5 % Monocytes (%) (Auto) 3.2 % Eosinophils (%) (Auto) 0.0 % Basophils (%) (Auto) 0.3 % Neutrophils # (Auto) 4.94 K/uL (1.4-6.5) Lymphocytes # (Auto) 0.74 K/uL (1.2-3.4) Monocytes # (Auto) 0.19 K/uL (0.11-0.59) Eosinophils # (Auto) 0.00 K/uL (0-0.5) Basophils # (Auto) 0.02 K/uL (0-0.2) RDW Standard Deviation 44.3 fL (36.4-46.3) RDW Coefficient of Variation 12.7 % (11.5-14.5) Immature Granulocyte % (Auto) 0.2 % Immature Granulocyte # (Auto) 0.01 K/uL (0.00-0.02) Prothrombin Time 10.1 SECONDS (9.0-12.0) Prothromb Time International Ratio 1.0 (0.9-1.1) Activated Partial Thromboplast Time 23.3 SECONDS (21.0-31.0) Partial Thromboplastin Ratio 0.9 Anion Gap 5.0 mmol/L (3-11) Est Creatinine Clear Calc Drug Dose 67.5 ml/min Estimated GFR () 77.2 Estimated GFR (Non- 66.6 BUN/Creatinine Ratio 12.8 (10-20) Calcium Level 8.4 mg/dl (8.5-10.1) Total Bilirubin 0.3 mg/dl (0.2-1) Aspartate Amino Transf (AST/SGOT) 19 U/L (15-37) Alanine Aminotransferase (ALT/SGPT) 19 U/L (12-78) Alkaline Phosphatase 66 U/L (45-117) Total Creatine Kinase 112 U/L (26-192) Creatine Kinase MB 1.8 ng/ml (0.5-3.6) Creatine Kinase MB Ratio 1.6 (0-3.0) Pro-B-Type Natriuretic Peptide 171 pg/ml (0-450) Total Protein 6.7 gm/dl (6.4-8.2) Albumin 3.9 gm/dl (3.4-5.0) Globulin 2.8 gm/dl (2.5-4.0) Albumin/Globulin Ratio 1.4 (0.9-2) Thyroid Stimulating Hormone (TSH) 3.770 uIu/ml (0.300-4.500) Human Chorionic Gonadotropin, Qual NEG (NEG) Urine Color YELLOW Urine Appearance CLOUDY (CLEAR) Urine pH 7.5 (4.5-7.5) Urine Specific [place] 1.010 (1.000-1.030) Urine Protein NEG (NEG) Urine Glucose (UA) NEG (NEG) Urine Ketones NEG (NEG) Urine Occult Blood NEG (NEG) Urine Nitrite NEG (NEG) Urine Bilirubin NEG (NEG) Urine Urobilinogen NEG (NEG) Urine Leukocyte Esterase SMALL (NEG) Urine WBC (Auto) >30 /hpf (0-5) Urine RBC (Auto) 0-4 /hpf (0-4) Urine Hyaline Casts (Auto) 1-5 /lpf (0-5) Urine Epithelial Cells (Auto) >30 /lpf (0-5) Urine Bacteria (Auto) 2+ (NEG) Urine Pathogenic Casts /lpf (0) Troponin I < 0.015 ng/ml (0-0.045) Laboratory results per my review. Medications Administered Medications (Trade) Dose Ordered Sig/[place] Route Start Time Stop Time Status Last Admin Dose Admin Ciprofloxacin (Cipro Tab) 500 mg NOW STAT PO 03/02/18 09:45 03/02/18 09:46 DC 03/02/18 09:55 500 MG ECG Per My Interpretation Indication: SOB/dyspnea Rate (beats per minute): 82 Rhythm: normal sinus Findings: T-wave inversion (Inferior, lateral), no ectopy Change: no significant change (Similar tracing noted from 10/26/2017) Change: 2nd EKG on 03/02/2018: Normal sinus rhythm, rate of 87, no ectopy, inferior and lateral T-wave abnormalities, no change from earlier tracing ED Course 0723: The patient was evaluated in room B2. A complete history and physical examination were performed. 0942: I reevaluated the patient. I asked her which antibiotics have worked for her UTIs in the past and she states Cipro has worked well. I discussed her discharge instructions and she verbalized complete understanding and agreement. 0945: Cipro 500 mg PO. Medical Decision Prior records/ancillary studies reviewed. Triage Nursing notes reviewed. The patient's history was concerning for chest pain. Differential diagnosis: Etiologies such as cardiac ischemia, aortic dissection, pulmonary embolism, pneumonia, pneumothorax, musculoskeletal, infections, pericarditis, myocarditis , esophageal rupture, gastrointestinal, as well as others were entertained. The patient is a 47-year-old female who presented to the emergency department with multiple complaints. The patient had chest discomfort as well as edema. She also complained of shortness of breath. The patient was not tachycardic or hypoxic. I discussed the patient's laboratory and radiographic studies with her. I also discussed the limitations of the emergency department workup for chest pain with her. She was found to have signs of urinary tract infection on urinalysis and was started on Cipro. The patient was encouraged to rest and avoid any strenuous activity. She was also encouraged to call her primary care physician to schedule a follow-up appointment. Otherwise she was encouraged to return to the emergency department immediately if symptoms change worsen or the need arises. Medication Reconcilliation Current Medication List: was personally reviewed by me Blood Pressure Screening Patient's blood pressure: Normal blood pressure Blood pressure disposition: Did not require urgent referral Impression Primary Impression: Chest pain Additional Impressions: Shortness of breath Edema UTI (urinary tract infection) Scribe Attestation The scribe's documentation has been prepared under my direction and personally reviewed by me in its entirety. I confirm that the note above accurately reflects all work, treatment, procedures, and medical decision making performed by me. Departure Information Dispostion Home / Self-Care Prescriptions Ciprofloxacin Hcl (CIPRO) 500 Mg Tab 500 MG PO BID, #14 TAB Prov: Calos Garcia, DO 03/02/18 Referrals Calos Walker M.D. (PCP) Patient Instructions ED Chest Pain Atypical Unkn Cause, My [facility], Urinary Tract Infecs Women Additional Instructions Continue all medications as prescribed. Rest and avoid any strenuous activity. Call your family doctor to schedule a follow-up appointment. You may require further studies such as a stress test or an echocardiogram to further evaluate the cause your symptoms. Problem Qualifiers Primary Impression: Chest pain Chest pain type: unspecified Qualified Codes: R07.9 - Chest pain, unspecified Additional Impressions: Edema Edema type: unspecified Qualified Codes: R60.9 - Edema, unspecified UTI (urinary tract infection) Urinary tract infection type: site unspecified Hematuria presence: without hematuria Qualified Codes: N39.0 - Urinary tract infection, site not specified
[2018-03-02 07:50] LABS: BASO % 0.3 %; BASO ABS # 0.02 K/uL (0-0.2); HEMOGLOBIN 12.8 g/dL (12.0-16.0); IG# 0.01 K/uL (0.00-0.02); LYMPH % 12.5 %; LYMPH ABS # 0.74 K/uL (1.2-3.4); MEAN CELL VOLUME 94.8 fL (80-100); MEAN CORPUSCULAR HEMOGLOBIN 30.3 pg (25-34); MEAN PLATELET VOLUME 10.7 fL (7.4-10.4); MONO % 3.2 %; MONO ABS # 0.19 K/uL (0.11-0.59); NEUT % 83.8 %; NEUT ABS # 4.94 K/uL (1.4-6.5); PLATELET COUNT 173 K/uL (130-400); RED CELL DISTRIBUTION WIDTH CV 12.7 % (11.5-14.5); RED CELL DISTRIBUTION WIDTH SD 44.3 fL (36.4-46.3)
--- NOTE | 2018-03-02 07:51 | DIAGNOSTIC IMAGING REPORT ---
CHEST ONE VIEW PORTABLE HISTORY: 47 years-old Female EVALUATE RESPIRATORY DISTRESS.DYSPNEA acute respiratory distress COMPARISON: Acute abdominal series radiographs 10/26/2016 TECHNIQUE: Portable supine AP view of the chest FINDINGS: Cardiac mediastinal and hilar silhouettes are within normal limits. No pneumothorax, pleural effusion, focal airspace consolidation or overt pulmonary edema. Postsurgical or chronic posttraumatic changes of the distal clavicles are noted bilaterally. The bones appear grossly intact. IMPRESSION: No acute process. The above report was generated using voice recognition software. It may contain grammatical, syntax or spelling errors. Electronically signed by: Kenney Dominguez M.D. 03/02/2018 7:50 AM Dictated Date/Time: 03/02/2018 7:46 AM
[2018-03-02 07:59] LABS: PTT PATIENT 23.3 SECONDS (21.0-31.0)
[2018-03-02 08:07] LABS: ALBUMIN 3.9 gm/dl (3.4-5.0); ALT/SGPT 19 U/L (12-78); AST/SGOT 19 U/L (15-37); BLOOD UREA NITROGEN 13 mg/dl (7-18); CALCIUM 8.4 mg/dl (8.5-10.1); CARBON DIOXIDE 23 mmol/L (21-32); GLUCOSE 83 mg/dl (70-99); POTASSIUM 3.6 mmol/L (3.5-5.1); SODIUM 140 mmol/L (136-145)
[2018-03-02 08:15] VITALS: O2SAT 100
[2018-03-02 08:18] LABS: ALKALINE PHOSPHATASE 66 U/L (45-117); CKMB 1.8 ng/ml (0.5-3.6); TOTAL PROTEIN 6.7 gm/dl (6.4-8.2)
[2018-03-02] MEDS ORDERED: CIPROFLOXACIN 500 MG TAB PO STA (09:45)
[2018-03-02 10:39] VITALS: BP 119/72; PULSE 86; O2SAT 99
[2018-03-02] MEDS ORDERED: CIPR-255 PO (10:54)
== END 2018-03-02 11:15 | disposition home or self-care (01) ==
LOC: C.EDB 07:13
DX: R07.9 Chest pain, unspecified (principal); R06.02 Shortness of breath; R60.9 Edema, unspecified; N39.0 Urinary tract infection, site not specified; F41.9 Anxiety disorder, unspecified; F31.9 Bipolar disorder, unspecified; F32.9 Major depressive disorder, single episode, unspecified; M79.7 Fibromyalgia; I10 Essential (primary) hypertension; C43.59 Malignant melanoma of other part of trunk; Z88.8 Allergy status to other drugs, medicaments and biological substances; Z88.5 Allergy status to narcotic agent